=== PATIENT | female | born 1935 | race Caucasian/White ===

== ENCOUNTER → 2016-10-15 | Outpatient (CLI) | payer MEDICARE, OTHER ==
[~2016-10-15] MED LIST: MEDR4PAK PO; WALKER STANDARD; WHEEMIS3 XX; [UNRECOGNIZED DRUG - CODE] PO; walker with seat TD
[2016-10-15 09:19] LABS: HEMATOCRIT 40.1 % (35.0-46.0); MEAN CELL VOLUME 86.3 FL (80.0-100.0); MEAN CORPUSCULAR HEMOGLOBIN 28.2 PG (27.0-34.0); MEAN CORPUSCULAR HGB CONC 32.7 % (32.0-36.0); PLATELET COUNT 265 TH/MM3 (150-450); RED BLOOD COUNT 4.65 MIL/MM3 (4.00-5.30); RED CELL DISTRIBUTION WIDTH 12.5 % (11.6-17.2); REVIEW FLAG FINAL; WHITE BLOOD COUNT 5.6 TH/MM3 (4.0-11.0)
[2016-10-15 09:30] LABS: POTASSIUM 4.3 MEQ/L (3.5-5.1)
== END ==
LOC: PLAB 06:54
PROVIDERS: ATTEND Family Medicine
DX: I10 Essential (primary) hypertension (principal)
CPT/HCPCS: 36415; 80048; 85027

== ENCOUNTER 2017-06-26 18:44 | Emergency (ER) | payer MEDICARE, OTHER ==
[~2017-06-26] VITALS: Ht 162.6 cm; Wt 90.1 kg
[~2017-06-26 18:44] MED LIST changes: +CIPR500T2; +GABA300C5 PO; +LUMBAR BACK BRA1 MIS; +VERA1TAB18; -WALKER STANDARD; -WHEEMIS3 XX; -[UNRECOGNIZED DRUG - CODE] PO
[2017-06-26 18:52] VITALS: BP 181/87; PULSE 73; RESP 18; TEMP 98.3; O2SAT 95
[2017-06-26] MEDS ORDERED: TRAM50 PO (19:18)
[2017-06-26] MEDS ORDERED: NYST10007 TOPICAL (19:18)
[2017-06-26] MEDS ORDERED: BACT800T5 PO (19:18)
[2017-06-26] MEDS ORDERED: CEPH-460 PO (19:18)
--- NOTE | 2017-06-26 19:19 | PD ---
HPI Chief Complaint: Skin Problem Time Seen by Provider: 19:02 Travel History International Travel<30 days: No Contact w/Intl Traveler<30days: No Traveled to known affect area: No History of Present Illness HPI Is an 82-year-old female here for evaluation of pain and redness in the webspace between her fourth and fifth left toe. She was the area this morning and attempted to treated with OTC clotrimazole thinking this with athlete's foot. The pain intensified and created a "burning" sensation causing her to come in for evaluation today. She denies fever or chills. No injury trauma to the area. Severity is moderate. No aggravating or alleviating factors PFSH Past Medical History Cancer: Yes (HX OF BLADDER ) Cardiovascular Problems: No Diabetes: No Endocrine: No Genitourinary: No Hepatitis: No Hiatal Hernia: No Hypertension: Yes Immune Disorder: No Musculoskeletal: No Neurologic: No Psychiatric: No Reproductive: No Respiratory: No Thyroid Disease: No ?: Not Menopausal: Yes Past Surgical History Abdominal Surgery: Yes (APPENECTOMY EARLY 50"S) AICD: No Appendectomy: Yes Eye Surgery: Yes (FIOR CATARACTS) Genitourinary Surgery: Yes (CYSTECTOMY FROM BLADDER) Gynecologic Surgery: No Joint Replacement: No Oral Surgery: Yes (T & A A CHILD ) Pacemaker: No Tonsillectomy: Yes (T&A) Other Surgery: Yes Social History Alcohol Use: Yes (3-4 TIMES PER MONTH) Tobacco Use: No Substance Use: No Allergies-Medications (Allergen,Severity, Reaction): Coded Allergies: No Known Allergies (Unverified Adverse Reaction, Unknown, 06/26/17) Reported Meds & Prescriptions Reported Meds & Active Scripts Active Reported Ciprofloxacin (Ciprofloxacin HCl) 500 Mg Tab Verapamil SR (Verapamil HCl) 240 Mg Tab Review of Systems Except as stated in HPI: all other systems reviewed are Neg General / Constitutional: No: Fever Eyes: No: Visual changes HENT: No: Headaches Cardiovascular: No: Chest Pain or Discomfort Respiratory: No: Shortness of Breath Gastrointestinal: No: Abdominal Pain Genitourinary: No: Dysuria Skin: Positive Itching, Positive Other (erythema and peeling skin in the webspace between the fourth and fifth) Neurologic: No: Weakness Physical Exam Narrative GENERAL: Alert and well-appearing 82-year-old female SKIN: Warm and dry. HEAD: Normocephalic. EYES: No injection or drainage. NECK: Supple. CARDIOVASCULAR: Regular rate and rhythm RESPIRATORY: Breath sounds equal bilaterally. No accessory muscle use. GASTROINTESTINAL: Abdomen soft, non-tender, nondistended. MUSCULOSKELETAL: No cyanosis, or edema. Left lower extremity: Erythema and peeling skin to the webspace between the fourth and fifth toe left foot. The erythema has extended approximately 2 cm onto the dorsal aspect of the foot. No fluctuance or induration. No open wounds on the foot. He can freely move the toes. No bony point tenderness. 2+ dorsal pedis pulse. Normal sensation. Brisk cap refill. Data Data Last Documented VS Vital Signs Date Time Temp Pulse Resp B/P (MAP) Pulse Ox O2 Delivery O2 Flow Rate FiO2 06/26/17 18:52 98.3 73 18 181/87 (118) 95 MDM Medical Decision Making Medical Screen Exam Complete: Yes Emergency Medical Condition: Yes Differential Diagnosis Tinea pedis, cellulitis, abscess Narrative Course 82-year-old female here with what appears to be tinea pedis and a secondary infection to the webspace between her fourth and fifth toe left foot. She is no bony tenderness. No open wounds. Her vital signs are stable. Duration of symptoms is less than 24 hours. I do not suspect osteomyelitis and do not think imaging is warranted. She will be placed on antibiotics and antifungals and instructed to follow-up with her doctor this week. Diagnosis Primary Impression: Tinea pedis Qualified Codes: B35.3 - Tinea pedis Additional Impression: Wound infection Referrals: Primary Care Physician Additional Instructions: Antibiotics as directed. Keep the area clean and dry. Follow-up the primary doctor for recheck of the area in a few days. Return if he developed new or worsening symptoms Scripts Tramadol (Ultram) 50 Mg Tab 50 MG PO Q6H Y for PAIN, #10 TAB 0 Refills Prov: Farzana Mcpherson DEPUTY SHERIFF 06/26/17 Nystatin Topical (Nystop Topical) 100,000 Unit/Gm Powd 1 APPLIC TOPICAL Q12HR for Infection for 7 Days, #15 GM 0 Refills Prov: Farzana Mcpherson DEPUTY SHERIFF 18 Cephalexin (Keflex) 500 Mg Cap 500 MG PO Q6H for Infection for 7 Days, #28 CAP 0 Refills Prov: Farzana Mcpherson 06/26/17 Sulfamethoxazole-Trimethoprim (Bactrim DS) 800-160 Mg Tab 1 TAB PO BID for Infection, #14 TAB 0 Refills Prov: Farzana Mcpherson 06/26/17 Disposition: 01 DISCHARGE HOME Condition: Stable Farzana Mcpherson Jun 26, 2017 19:19
== END 2017-06-26 19:53 | disposition home or self-care (01) ==
LOC: PHEFT 18:44
DX: B35.3 Tinea pedis (principal); I10 Essential (primary) hypertension
CPT/HCPCS: 99283

== ENCOUNTER → 2017-09-06 | Day surgery (SDC) | payer MEDICARE, OTHER ==
[~2017-09-06] MED LIST changes: +ALEV220T14 PO; +BACT800T5 PO; +BUPIVACAINE HCL PF 0.5% 30 ML VIAL ONE; +CEPH-460 PO; -GABA300C5 PO; -LUMBAR BACK BRA1 MIS; -MEDR4PAK PO; +NYST10007 TOPICAL; +PROPOFOL 200 MG/20 ML AMP IV ONE; +TRAM50 PO; +TRIAMCINOLONE ACETONIDE 40 MG/ML VIAL I-ARTICULR ONE; +methylPREDNISolone ACETATE 40 MG/ML VIAL I-ARTICULR ONE; -walker with seat TD
--- NOTE | 2017-09-06 10:48 | M6 ---
cc: Rudy Arredondo MD DATE: 09/06/2017 PROCEDURE: Fluoroscopically-guided injection of the left sacroiliac joint. History and physical was completed and signed. Consent was signed. Procedure site was marked. Medications were listed and reconciled. Pain score was recorded. Allergies were noted. Time out was taken. Fluoroscopy time was recorded where applicable. Sedation was administered or directed by Dr. Arredondo. The patient was given oxygen. The patient was monitored by a registered nurse. Total procedure time was greater than 15 minutes. PROCEDURE NOTE: IV was started. Blood pressure cuff pulse oximeter and EKG were applied. The patient was placed in the prone position on a Delonte table, sedated with small amounts of propofol titrated to effect. Vital signs were monitored and remained stable throughout the procedure. The sacral area was prepped with alcohol and 10% Betadine solution and draped with sterile drapes. Fluoroscopy was used shooting from medial to lateral to clearly visualize the posterior joint line of the left sacroiliac joint. A sterile 5-1/2 inch, 22-gauge spinal needle was advanced into the joint under fluoroscopic guidance. There was negative aspiration for blood or any other type of fluid and at that location. The patient was given 2 mL of 0.5% Marcaine, and 20 mg of Depo-Medrol and 20 mg of Kenalog. Following this, the patient was taken to the recovery room with stable vital signs, neurologically intact. She will be evaluated immediately and with followup to determine if she has a subjective decrease in her usual pain and a corresponding objective increase in her functional capabilities. MD BHAVNA Seth/KSENIA , 10:37 AM , 10:48 AM
== END | disposition home or self-care (01) ==
LOC: PHSDC 08:53
PROVIDERS: ATTEND Pain Medicine Interventional Pain Medicine
DX: M54.5 Low back pain (principal)
CPT/HCPCS: 99152; G0260; J1030; J3301; 27096

== ENCOUNTER → 2017-09-21 | Day surgery (SDC) | payer MEDICARE, OTHER ==
[~2017-09-21] MED LIST changes: -BACT800T5 PO; -CEPH-460 PO; +IOHEXOL 180 MG/ML 20 ML VIAL (for RAD DIAG) EPIDURAL ONE; +LIDOCAINE HCL 1% 30 ML VIAL INFIL ONE; -NYST10007 TOPICAL; -TRAM50 PO; -TRIAMCINOLONE ACETONIDE 40 MG/ML VIAL I-ARTICULR ONE; +TRIAMCINOLONE ACETONIDE 40 MG/ML VIAL NERV BLOCK ONE; -methylPREDNISolone ACETATE 40 MG/ML VIAL I-ARTICULR ONE
--- NOTE | 2017-09-21 11:04 | M6 ---
cc: Rudy Arredondo MD DATE: 09/21/2017 DATE OF : 1935. PROCEDURE PERFORMED: Fluoroscopically guided left L4-L5 and left L5-S1 transforaminal epidural steroid injection. History and physical was completed and signed. Consent was signed. Procedure site was marked. Medications were listed and reconciled. Pain score was recorded. Allergies were noted. Time out was taken. Fluoroscopy time was recorded where applicable. Sedation was administered or directed by Dr. Arredondo. The patient was given oxygen. The patient was monitored by a registered nurse. Total procedure time was greater than 15 minutes. PROCEDURE NOTE: An IV was started, blood pressure cuff, pulse oximeter and EKG were applied. The patient was placed in the prone position on a Delonte table, sedated with small amounts of Versed and propofol titrated to effect. Vital signs were monitored and remained stable throughout the procedure. The patient remained responsive throughout the procedure. The lumbar area was scrubbed with antimicrobial solution, prepped with 10% Betadine solution, and draped with sterile drapes. Fluoroscopy was used in both the AP and lateral projections to clearly visualize the left L4-5 and left L5-S1 neural foramen. Then separate sterile 22 gauge, 3 1/2-inch Chiba needles were advanced under fluoroscopic guidance into the dorsal-most aspect of each foramen. There was negative aspiration for blood or CSF. There were no reported paresthesias by the patient. There was no washout of 2 mL of Omnipaque. Then after waiting approximately 60 seconds, the patient was slowly given 3 mL of 1% Xylocaine, 2 mL of 0.5% Marcaine, 3 mL of Omnipaque and 40 mg of Kenalog at each location. Following this, the patient was taken to the recovery room with stable vital signs, neurologically intact. MD BHAVNA Seth/KSENIA , 10:49 AM , 11:03 AM
--- NOTE | 2017-09-21 11:12 | M6 ---
cc: Rudy Arredondo MD DATE: 09/21/2017 DATE OF PROCEDURE: 09/21/2017 PROCEDURE PERFORMED: Epidurogram. PREPROCEDURE DIAGNOSIS: Left lumbar radiculopathy. POSTPROCEDURE DIAGNOSIS: Left lumbar radiculopathy. History and physical was completed and signed. Consent was signed. Procedure site was marked. Medications were listed and reconciled. Pain score was recorded. Allergies were noted. Time out was taken. Fluoroscopy time was recorded where applicable. Sedation was administered or directed by Dr. Arredondo. The patient was given oxygen. The patient was monitored by a registered nurse. Total procedure time was greater than 15 minutes. An epidurogram was done today on Ms. Hope. X-ray images were saved for the patient's chart. Ms. Hope has left lower extremity radicular pain and she has an MRI showing severe foraminal stenosis at L4-L5 and moderate foraminal stenosis at L5-S1. Her pain extends down the lateral aspect of her left calf and the lateral aspect of her left ankle in an L5 distribution. The epidural was epidurogram was done was in order to determine if the medication not only spread distally along the L4 and L5 nerve root, but also spread through the neural foramen to the central epidural space. If the medication did not spread through the neural foramen, that probably would affect our decisions regarding future injections. IV was started. Blood pressure cuff, pulse oximeter and EKG were applied. The patient was placed in the prone position on a Delonte table and sedated with small amounts of propofol titrated to effect. Vital signs were monitored and remained stable throughout the procedure. The lumbar area was prepped with alcohol and 10% Betadine solution and draped with sterile drapes. Fluoroscopy was used in both the lateral and AP projection to visualize the left L4-L5 and left L5-S1 neural foramen. Separate sterile 3.5 inch, 22 gauge Chiba needles were advanced into the dorsal aspect of each foramen. There was negative aspiration for blood and any other type of fluid and at each location, the patient was given 3 mL of Omnipaque which spread distally along the L4 and L5 nerve root, but did not spread medially through the neural foramen at either level. 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 Consider interlaminar central epidural injection in the future depending on the patient's response to this procedure. W. MD BHAVNA Pryor/USAMA , 10:53 AM , 11:11 AM
== END | disposition home or self-care (01) ==
LOC: PHSDC 08:47
PROVIDERS: ATTEND Pain Medicine Interventional Pain Medicine
DX: M54.16 Radiculopathy, lumbar region (principal); M79.662 Pain in left lower leg; M48.061 Spinal stenosis, lumbar region without neurogenic claudication
CPT/HCPCS: 64483; 64484; 99152; J3301; Q9965

== ENCOUNTER → 2017-10-03 | Day surgery (SDC) | payer MEDICARE, OTHER ==
[~2017-10-03] MED LIST changes: -BUPIVACAINE HCL PF 0.5% 30 ML VIAL ONE; -IOHEXOL 180 MG/ML 20 ML VIAL (for RAD DIAG) EPIDURAL ONE; -LIDOCAINE HCL 1% 30 ML VIAL INFIL ONE; +LIDOCAINE HCL 1% 30 ML VIAL NERV BLOCK ONE; +SODIUM CHLORIDE 0.9% 10 ML VIAL ONE; -VERA1TAB18; +VERA1TAB18 PO
--- NOTE | 2017-10-03 09:11 | M6 ---
cc: Rudy Arredondo MD DATE: 10/03/2017 DATE OF : 1935 PROCEDURE: Fluoroscopically-guided left L4-L5 and left L5-S1 transforaminal epidural steroid injection. History and physical was completed and signed. Consent was signed. Procedure site was marked. Medications were listed and reconciled. Pain score was recorded. Allergies were noted. Time out was taken. Fluoroscopy time was recorded where applicable. Sedation was administered or directed by Dr. Arredondo. The patient was given oxygen. The patient was monitored by a registered nurse. Total procedure time was greater than 15 minutes. PROCEDURE NOTE: An IV was started, blood pressure cuff, pulse oximeter and EKG were applied. The patient was placed in the prone position on a Delonte table, sedated with small amounts of Versed and propofol titrated to effect. Vital signs were monitored and remained stable throughout the procedure. The patient remained responsive throughout the procedure. The lumbar area was scrubbed with antimicrobial solution, prepped with 10% Betadine solution, and draped with sterile drapes. Fluoroscopy was used in both the AP and lateral projections to clearly visualize the left L4-5 and left L5-S1 neural foramen. Then separate sterile 22 gauge, 3 1/2-inch Chiba needles were advanced under fluoroscopic guidance into the dorsal-most aspect of each foramen. There was negative aspiration for blood or CSF. There were no reported paresthesias by the patient. There was no washout of 2 mL of Omnipaque. Then after waiting approximately 60 seconds, the patient was slowly given 3 mL of 1% Xylocaine, 3 mL of normal saline and 40 mg of Kenalog at each location. Following this, the patient was taken to the recovery room with stable vital signs, neurologically intact. MD BHAVNA Seth/KSENIA , 08:53 AM , 09:11 AM
== END | disposition home or self-care (01) ==
LOC: PHSDC 06:51
PROVIDERS: ATTEND Pain Medicine Interventional Pain Medicine
DX: M54.5 Low back pain (principal); I10 Essential (primary) hypertension; H35.30 Unspecified macular degeneration; K27.9 Peptic ulcer, site unspecified, unspecified as acute or chronic, without hemorrhage or perforation; M19.90 Unspecified osteoarthritis, unspecified site
CPT/HCPCS: 64483; 64484; 99152; J3301